=== PATIENT | female | born 1980 | race American Indian/Alaskan Native ===

== ENCOUNTER 2017-07-24 14:06 | Emergency (ER) | payer BC ==
[2017-07-24 14:47] LABS: HCG Qualitative,Urine Negative (Negative)
[2017-07-24 14:49] LABS: Bilirubin,Urine NEG (Negative); Blood,Urine NEG (Negative); Color,Urine Straw (Yellow); Mucus,Urine FEW /HPF; Protein,Urine <15 mg/dL mg/dL (Negative); Urobilinogen,Urine < 2.0 mg/dL (<2.0); WBC,Urine < 1.0 /HPF (0.0-6.0)
--- NOTE | 2017-07-24 14:55 | Emergency Department Report ---
Blank Doc - Documentation Documentation: Patient is a 37-year-old females presented with high blood pressure. Patient states that her went to the doctor several days ago for physical his blood pressure was 5 she took her blood pressure was elevated she says she's been taking last several days and is remained elevated at approximately 160 systolic. Patient denies any chest pain but does state that she has some exertional shortness of breath this been present for several months as well as occasional dizziness. Patient has had a 60 pound weight loss or purpose recently as well. Patient states she also has chronic diarrhea but is not complaining of any abdominal pain at this time. Patient will return to treatment area to have blood work done to check kidney function and electrolytes as well as a EKG. be
[2017-07-24 15:12] LABS: Basophils % (Auto) 0.7 % (0.0-1.8); Eosinophils % (Auto) 0.1 % (0.0-4.3); Hematocrit 31.9 % (30.3-42.9); Hemoglobin 10.2 gm/dl (10.1-14.3); Lymphocytes # (Auto) 1.6 K/mm3 (1.2-5.4); Lymphocytes % (Auto) 27.5 % (13.4-35.0); Mean Corpuscular HGB Conc 32 % (30-34); Mean Corpuscular Hemoglobin 27 pg (28-32); Mean Corpuscular Volume 85 fl (79-97); Monocytes # (Auto) 0.3 K/mm3 (0.0-0.8); Monocytes % (Auto) 5.4 % (0.0-7.3); Platelet Count 344 K/mm3 (140-440); Red Blood Count 3.75 M/mm3 (3.65-5.03); Red Cell Distribution Width 15.5 % (13.2-15.2)
[2017-07-24 15:31] LABS: BUN/Creatinine Ratio 15; Blood Urea Nitrogen 9 mg/dL (7-17); Calcium 8.7 mg/dL (8.4-10.2); Hemolysis Index 1
[2017-07-24] MEDS ORDERED: CATAPRES PO ONE (15:50)
--- NOTE | 2017-07-24 16:42 | Emergency Department Report ---
ED General Adult HPI - General Chief complaint: Medical Clearance Stated complaint: HIGH BP Time Seen by Provider: 07/24/17 14:40 Source: patient Mode of arrival: Ambulatory Limitations: No Limitations - History of Present Illness Initial comments: Patient is a 37-year-old females presented with high blood pressure. Patient states that her went to the doctor several days ago for physical his blood pressure was 5 she took her blood pressure was elevated she says she's been taking last several days and is remained elevated at approximately 160 systolic. Patient denies any chest pain but does state that she has some exertional shortness of breath this been present for several months as well as occasional dizziness. Patient has had a 60 pound weight loss or purpose recently as well. Patient states she also has chronic diarrhea but is not complaining of any abdominal pain at this time. - Related Data Previous Rx's Medication Instructions Recorded Last Taken Type Lisinopril/Hydrochlorothiazide 1 each PO DAILY #30 tablet 07/24/17 Unknown Rx [Zestoretic 10-12.5 mg Tablet] Allergies Allergy/AdvReac Type Severity Reaction Status Date / Time No Known Allergies Allergy Unverified 07/24/17 14:23 ED Review of Systems ROS: Stated complaint: HIGH BP Other details as noted in HPI Comment: All other systems reviewed and negative ED Past Medical Hx - Past Medical History Previous Medical History?: No - Surgical History Past Surgical History?: Yes Additional Surgical History: Ectopic 2017 - Social History Smoking Status: Current Every Day Smoker Substance Use Type: None - Medications Home Medications: Home Medications Medication Instructions Recorded Confirmed Last Taken Type Lisinopril/Hydrochlorothiazide 1 each PO DAILY #30 tablet 07/24/17 Unknown Rx [Zestoretic 10-12.5 mg Tablet] ED Physical Exam - General Limitations: No Limitations General appearance: alert, in no apparent distress - Head Head exam: Present: atraumatic, normocephalic - Eye Eye exam: Present: normal appearance - ENT ENT exam: Present: mucous membranes moist - Neck Neck exam: Present: normal inspection - Respiratory Respiratory exam: Present: normal lung sounds bilaterally. Absent: respiratory distress - Cardiovascular Cardiovascular Exam: Present: regular rate, normal rhythm. Absent: systolic murmur, diastolic murmur, rubs, gallop - GI/Abdominal GI/Abdominal exam: Present: soft, normal bowel sounds - Extremities Exam Extremities exam: Present: normal inspection - Back Exam Back exam: Present: normal inspection - Neurological Exam Neurological exam: Present: alert, oriented X3 - Psychiatric Psychiatric exam: Present: normal affect, normal mood - Skin Skin exam: Present: warm, dry, intact, normal color. Absent: rash ED Course Vital Signs 07/24/17 07/24/17 07/24/17 14:18 14:23 16:16 Temperature 98.4 F Pulse Rate 95 H 99 H Respiratory 16 Rate Blood Pressure 165/95 156/91 O2 Sat by Pulse 99 Oximetry ED Medical Decision Making - Lab Data Result diagrams: 07/24/17 15:03 07/24/17 15:03 - EKG Data -: EKG Interpreted by Me EKG shows normal: sinus rhythm, axis, intervals, QRS complexes, ST-T waves Rate: normal - EKG Data Interpretation: normal EKG - Medical Decision Making Patient does exhibit some mild hypertension however she has no signs of end organ damage at this time. Patient very anxious and nervous about her blood pressure being elevated, started on low-dose of Zestoretic and will discharge her home with follow-up with primary care. Critical care attestation.: If time is entered above; I have spent that time in minutes in the direct care of this critically ill patient, excluding procedure time. ED Disposition Clinical Impression: Hypertensive urgency Disposition: DC-01 TO HOME OR SELFCARE Is pt being admited?: No Does the pt Need Aspirin: No Condition: Stable Instructions: Hypertension (ED) Prescriptions: Lisinopril/Hydrochlorothiazide [Zestoretic 10-12.5 mg Tablet] 1 each PO DAILY # 30 tablet Referrals: EZ MANCUSO MD [Primary Care Provider] - 3-5 Days
[2017-07-24 16:54] VITALS: BP 132/85
== END 2017-07-24 16:54 | disposition home or self-care (01) ==
LOC: ED 14:06
DX: I16.0 Hypertensive urgency (principal); F17.200 Nicotine dependence, unspecified, uncomplicated
CPT/HCPCS: 36415; 80048; 81001; 81025; 85025; 93005; 93010; 99283